=== PATIENT | male | born 1995 | race Two or more races ===

== ENCOUNTER 2018-05-13 08:46 | Emergency (ER) | payer MEDICAID ==
[~2018-05-13] VITALS: Ht 170.2 cm; Wt 57.6 kg
[2018-05-13 09:07] VITALS: Ht 170.2 cm; Wt 57.6 kg
[2018-05-13 09:30] LABS: microscopic required? NO
[2018-05-13 09:54] LABS: CALCIUM 8.1 mg/dL (8.5-10.1); CARBON DIOXIDE 32.7 mmol/L (21-32); CHLORIDE SERUM 104 mmol/L (98-107); CREATININE SERUM 0.9 mg/dL (0.7-1.3); GFR1 > 60 mL/min; GLUCOSE SERUM 90 mg/dL (74-106); POTASSIUM SERUM 4.5 mmol/L (3.5-5.1); SODIUM SERUM 140 mmol/L (136-145)
[2018-05-13 09:59] LABS: ALBUMIN 3.8 g/dL (3.4-5.0); ALKALINE PHOSPHATASE 76 U/L (46-116); ALT/SGPT 18 U/L (16-63); AST/SGOT 13 U/L (15-37); BILIRUBIN TOTAL 0.74 mg/dL (0.20-1.00); TOTAL PROTEIN, SERUM 6.6 g/dL (6.4-8.2)
[2018-05-13 10:20] LABS: BASOPHIL % 0.6 % (0-2); PLATELET COUNT 173 x10^3mcL (130-400); RED CELL DISTRIBUTION WIDTH 13.9 % (11.5-14.5)
[2018-05-13 10:38] LABS: UA SPECIFIC GRAVITY 1.025 (1.005-1.035); urine erythrocyte NEGATIVE (NEGATIVE)
[2018-05-13 12:29] VITALS: BP 96/51
[2018-05-13 12:40] LABS: AMPHETAMINE QUAL UR POSITIVE (See below)
== END 2018-05-13 12:55 | disposition left against medical advice (07) ==
LOC: ED 08:46
PROVIDERS: Specialist
DX: R45.851 Suicidal ideations (principal); F32.9 Major depressive disorder, single episode, unspecified; F43.10 Post-traumatic stress disorder, unspecified; F41.9 Anxiety disorder, unspecified; J45.909 Unspecified asthma, uncomplicated
CPT/HCPCS: 36415; G0480

== ENCOUNTER 2018-08-08 14:07 | Emergency (ER) | payer OTHER ==
[~2018-08-08] VITALS: Ht 170.2 cm; Wt 62.1 kg
[2018-08-08 14:13] VITALS: BP 116/76; Ht 170.2 cm; Wt 62.1 kg
== END 2018-08-08 15:16 | disposition home or self-care (01) ==
LOC: ED 14:07
DX: S39.012A Strain of muscle, fascia and tendon of lower back, initial encounter (principal); J45.909 Unspecified asthma, uncomplicated; F41.9 Anxiety disorder, unspecified; F32.9 Major depressive disorder, single episode, unspecified; F43.10 Post-traumatic stress disorder, unspecified; X50.3XXA Overexertion from repetitive movements, initial encounter; Y93.89 Activity, other specified; Y92.89 Other specified places as the place of occurrence of the external cause; Y99.8 Other external cause status
CPT/HCPCS: J1885

== ENCOUNTER 2018-10-10 16:03 | Emergency (ER) | payer MEDICAID ==
[~2018-10-10] VITALS: Ht 165.1 cm; Wt 58.1 kg
[2018-10-10 21:00] LABS: BASOPHIL % 0.4 % (0-2); PLATELET COUNT 211 x10^3mcL (130-400); RED CELL DISTRIBUTION WIDTH 13.6 % (11.5-14.5)
[2018-10-10 21:14] LABS: CALCIUM 8.7 mg/dL (8.5-10.1); CARBON DIOXIDE 26.3 mmol/L (21-32); CHLORIDE SERUM 101 mmol/L (98-107); CREATININE SERUM 1.1 mg/dL (0.7-1.3); GFR1 > 60 mL/min; GLUCOSE SERUM 143 mg/dL (74-106); POTASSIUM SERUM 3.3 mmol/L (3.5-5.1); SODIUM SERUM 140 mmol/L (136-145)
[2018-10-10 21:19] LABS: ALBUMIN 4.6 g/dL (3.4-5.0); ALKALINE PHOSPHATASE 84 U/L (46-116); ALT/SGPT 20 U/L (16-63); AST/SGOT 23 U/L (15-37); BILIRUBIN TOTAL 1.76 mg/dL (0.20-1.00)
[2018-10-10 21:37] LABS: AMPHETAMINE QUAL UR POSITIVE (See below)
[2018-10-10 21:58] VITALS: BP 118/59
== END 2018-10-10 21:58 | disposition home or self-care (01) ==
LOC: ED 16:03
PROVIDERS: Emergency Medicine
DX: E86.0 Dehydration (principal); E87.6 Hypokalemia; F41.9 Anxiety disorder, unspecified; F15.10 Other stimulant abuse, uncomplicated; J45.909 Unspecified asthma, uncomplicated; R20.0 Anesthesia of skin; R07.89 Other chest pain
CPT/HCPCS: 36415; G0480

== ENCOUNTER 2018-11-30 19:49 | Emergency (ER) | payer MEDICAID ==
[~2018-11-30] VITALS: Ht 170.2 cm; Wt 72.6 kg
[2018-11-30 19:55] VITALS: Ht 170.2 cm; Wt 72.6 kg
[2018-12-01] VITALS: BP 96/46
== END 2018-12-01 | disposition home or self-care (01) ==
LOC: ED 19:49
DX: F12.129 Cannabis abuse with intoxication, unspecified (principal); J45.909 Unspecified asthma, uncomplicated; F41.9 Anxiety disorder, unspecified; F32.9 Major depressive disorder, single episode, unspecified
CPT/HCPCS: 82962